=== PATIENT | male | born 1940 | race Caucasian/White ===

== ENCOUNTER 2022-10-16 07:58 | Day surgery (SDC) | payer MEDICARE ==
[2022-10-09 15:10] LABS: BASOPHILS # (AUTO) 0.1 X10'3 (0-0.2); BASOPHILS % (AUTO) 0.8 % (0-1); EOSINOPHILS # (AUTO) 0.8 X10'3 (0-0.9); EOSINOPHILS % (AUTO) 8.4 % (0-6); LYMPHOCYTES % (AUTO) 22.2 % (21-51); MEAN CORPUSCULAR HEMOGLOBIN 29.6 PG (27.0-31.0); MEAN CORPUSCULAR HGB CONC 33.5 g/dL (33.0-36.5); MEAN CORPUSCULAR VOLUME 88.4 FL (78-98); MEAN PLATELET VOLUME 8.4 FL (7.4-10.4); MONOCYTES # (AUTO) 0.7 X10'3 (0-0.9); MONOCYTES % (AUTO) 8.1 % (2-12); NEUTROPHILS # (AUTO) 5.5 X10'3 (1.8-7.7); NEUTROPHILS % (AUTO) 60.5 % (42-75); PRE OP HEMATOCRIT 43.9 % (42.0-52.0); PRE OP HEMOGLOBIN 14.7 g/dL (14.0-17.9); PRE OP PLATELET COUNT 187 X10'3 (140-440); RED BLOOD COUNT 4.97 X10'6 (4.70-6.10); RED CELL DISTRIBUTION WIDTH 14.8 % (11.5-14.5)
[2022-10-09 15:28] LABS: BILIRUBIN,URINE NEGATIVE (Neg); CLARITY,URINE CLOUDY (Clear); COLOR,URINE YELLOW (Yellow); GLUCOSE, URINE NEGATIVE (Neg); KETONES,URINE TRACE mg/dl (Neg); LEUKOCYTE ESTERASE ,URINE SMALL (Neg); NITRITES, URINE NEGATIVE (Neg); OCCULT BLOOD,URINE NEGATIVE (Neg); PH,URINE 5.5 (4.8-8.0); PROTEIN,URINE 30 mg/dl (Neg); UROBILINOGEN,URINE 0.2 E.U/dL (0.2-1.0)
[2022-10-09 15:30] LABS: ALBUMIN 4.1 G/DL (3.4-5.0); ALBUMIN/GLOBULIN RATIO 1.1 (1.1-1.5); ALKALINE PHOSPHATASE 54 IU/L (46-116); BLOOD UREA NITROGEN 17 MG/DL (7-18); BUN/CREATININE RATIO 12.9 (10.0-20.0); CALCIUM 9.8 MG/DL (8.5-10.1); CHLORIDE 103 MMOL/L (99-107); CREATININE 1.32 MG/DL (0.60-1.10); PRE OP ALT 52 U/L (30-65); PRE OP ANION GAP 10 (8-16); PRE OP AST 32 U/L (10-37); PRE OP BILIRUB, TOTAL 0.4 MG/DL (0.0-1.0); PRE OP GLUCOSE 192 MG/DL (70-104); PRE OP POTASSIUM 4.4 MMOL/L (3.4-5.1); PRE OP SODIUM 139 MMOL/L (135-145); TOTAL CARBON DIOXIDE 26.3 MMOL/L (24-32); TOTAL PROTEIN 7.7 G/DL (6.4-8.2); eGFR 52 ML/MIN
[2022-10-09 15:51] LABS: UA COLLECTION TYPE CLN CATCH MIDSTREAM
[2022-10-09 15:52] LABS: HYALINE CASTS 0-3 /LPF (NEGATIVE); MUCUS STRANDS FEW /LPF (Neg); SQUAMOUS EPITHELIAL CELL,UR FEW /LPF (FEW)
[2022-10-09 15:53] LABS: BACTERIA,URINE 2+ /HPF (Neg); TRANSITIONAL EPI CELLS,URINE MANY /HPF; WBC CLUMPS,URINE MANY /HPF (NEGATIVE); WBC,URINE TNTC /HPF (0-4)
[2022-10-16] VITALS (20 sets, daily range): BP systolic 125–152; BP diastolic 68–97; PULSE 82–103; RESP 12–24; TEMP 98.1; O2SAT 90–100
[~2022-10-16] VITALS: Ht 170.2 cm; Wt 63.5 kg
[~2022-10-16 07:58] MED LIST: BUPIVAcaine/PF 2.5 mg/ml (0.25%) 30ml vial ONE; FAMO40TA58 PO; METF-900 PO; OMEP20CA16 PO; SIMV10TA98 PO; SITA100T11 PO; cefazolin 2gm/D5W 100mL 100 ML IV ONE; famotidine 20mg tablet PO ONE; ringers solution, lacted 1,000 ML IV SCH
--- NOTE | 2022-10-16 12:15 | NUR ---
SURGERY DELAYED. PT AND NOTIFIED. PT HAS BEEN UP TO THE BATHROOM, NO COMPLAINTS, IV PATENT ON A PUMP. REPORT GIVEN WITH ALL QUESTIONS ANSWERED TO SMILEY SPRAGUE WHO ASSUMES PT CARE.
[2022-10-16] MEDS ORDERED: dexamethasone sod phosphate 4mg/ml inj. ONE (14:03)
[2022-10-16] MEDS ORDERED: rocuronium 10mg/ml inj IV ONE (14:03)
[2022-10-16] MEDS ORDERED: ondansetron/PF 4mg/2ml inj ONE (14:03)
[2022-10-16] MEDS ORDERED: LIDOcaine 2% (20mg/ml) 5ml vial ONE (14:03)
[2022-10-16] MEDS ORDERED: propofol inj 20 ML IV ONE (14:03)
[2022-10-16] MEDS ORDERED: glycopyrrolate 0.2mg/ml inj ONE (14:10)
[2022-10-16] MEDS ORDERED: desflurane 240ml liquid inh. IH ONE (14:10)
[2022-10-16] MEDS ORDERED: neostigmine methylsulfate 1 MG/ML 10ml vial ONE (14:10)
[2022-10-16] MEDS ORDERED: PHENYLephrine 10mg/ml 5ml injection IV ONE (14:10)
[2022-10-16] MEDS ORDERED: midazolam 1 mg/ML 2ml injection ONE (14:16)
[2022-10-16] MEDS ORDERED: fentaNYL/PF 50MCG/1 ML 2ML syringe ONE (14:16)
[2022-10-16] MEDS ORDERED: acetaminophen 1,000mg/100ml IV 100 ML IV ONE (14:26)
[2022-10-16] MEDS ORDERED: BUPIVAcaine/PF 2.5 mg/ml (0.25%) 30ml vial IJ ONE (14:40)
[2022-10-16] MEDS ORDERED: ePHEDrine 50MG/ML INJ. ONE (14:43)
[2022-10-16] MEDS ORDERED: labetalol 20mg/4ml (5mg/ml) syringe IV ONE (16:05)
--- NOTE | 2022-10-16 16:15 | NUR ---
PT ARRIVED TO RR VIA [facility] ACCOMPANIED BY -ANESTHESIA REPORT GIVEN, PT WAKING UP VSS, DENIES PAIN, LAP SITES X 3-CDI, PIV 20G TO RIGHT HAND-SEE FLOWSHEET.
[2022-10-16] MEDS ORDERED: morphine 4 MG/ML inj SYRINge IV ONE (16:28)
[2022-10-16] MEDS ORDERED: labetalol 20mg/4ml (5mg/ml) syringe IV PRN (16:30)
[2022-10-16] MEDS ORDERED: fentaNYL/PF 50MCG/1 ML 2ML syringe IV PRN ×2 (16:30)
[2022-10-16] MEDS ORDERED: ondansetron/PF 4mg/2ml inj IV PRN (16:30)
[2022-10-16] MEDS ORDERED: hydrALAZINE 20mg/ml inj. IV PRN (16:30)
[2022-10-16] MEDS ORDERED: ringers solution, lacted 1,000 ML IV SCH (16:30)
[2022-10-16] MEDS ORDERED: morphine 4 MG/ML inj SYRINge IV PRN (16:30)
[2022-10-16] MEDS ORDERED: morphine 2 MG/ML inj. syringe IV PRN (16:30)
--- NOTE | 2022-10-16 18:35 | NUR ---
PERFORMED BLADDER SCANNER AND 325 CC OF URINE NOTED.
--- NOTE | 2022-10-16 19:25 | NUR ---
ALL DISCHARGE CRITERIA HAS BEEN MET. VSS, PAIN AT A TOLERABLE LEVEL, VOIDING AND ABLE TO SAFELY AMBULATE AND TRANSFER SELF. IV TAKEN OUT WITHOUT ANY COMPLICATIONS. ALL DISCHARGE INSTRUCTIONS COVERED WITH PATIENT AND ALL QUESTIONS ANSWERED. PATIENT TAKEN OUT VIA WHEELCHAIR WITH ALL BELONGINGS TO PERSONAL VEHICLE WHERE FAMILY DROVE PATIENT HOME. Addendum: 10/16/22 at 1944 by Laci Gonzalez RN Amended: Links added.
== END 2022-10-16 19:25 | disposition home or self-care (01) ==
LOC: PAS 07:58
PROVIDERS: ATTEND Surgery
DX: K40.90 Unilateral inguinal hernia, without obstruction or gangrene, not specified as recurrent (principal); D17.6 Benign lipomatous neoplasm of spermatic cord; E11.22 Type 2 diabetes mellitus with diabetic chronic kidney disease; N18.30 Chronic kidney disease, stage 3 unspecified; K21.9 Gastro-esophageal reflux disease without esophagitis; Z98.890 Other specified postprocedural states; Z79.84 Long term (current) use of oral hypoglycemic drugs; Z79.899 Other long term (current) drug therapy; Z87.891 Personal history of nicotine dependence; Z83.3 Family history of diabetes mellitus
CPT/HCPCS: 36415; 49650; 80053; 81001; 82948; 85025; 87088; C1781; J0131; J0690; J1100; J2250; J2270; J2370; J2405; J2704; J2710; J3010; J3490; J7030; J7120; Z7506; Z7508; Z7512; A4215; A4618; C1758

== ENCOUNTER 2025-02-14 13:15 | Outpatient (CLI) | payer MEDICARE ==
[~2025-02-14 13:15] MED LIST changes: -BUPIVAcaine/PF 2.5 mg/ml (0.25%) 30ml vial ONE; -cefazolin 2gm/D5W 100mL 100 ML IV ONE; -famotidine 20mg tablet PO ONE; -ringers solution, lacted 1,000 ML IV SCH
--- NOTE | 2025-02-14 15:24 | RADIOLOGY REPORT ---
EXAM: MR MRI C SPINE HISTORY: SPONDYLOSIS W/O MYELOPATHY OR RADICULOPATHY, LUMBA COMPARISON: None TECHNIQUE: MRI was performed utilizing multiple appropriate imaging planes and pulse sequences. FINDINGS: There is no acute displaced fracture. There are degenerative changes of the cervical spine characterized by multilevel disc desiccation, endplate osteophytosis, and intervertebral disc space narrowing, most pronounced spanning C5 through C7. There is grade 1 anterolisthesis of C3 on C4. There is mild edema across the opposing endplates of C7-T1. The spinal cord is unremarkable. The paraspinal soft tissues are unremarkable. INTERVERTEBRAL DISCS: C2-C3: No disc herniation, central canal stenosis, or neuroforaminal stenosis. C3-C4: There is grade 1 anterolisthesis of C3 on C4 associated with unroofing of the disc. There is effacement of the thecal sac. There is no significant spinal canal or neural foraminal stenosis. C4-C5: A mild disc osteophyte complex effaces the thecal sac without significant spinal canal or neural foraminal stenosis C5-C6: A broad-based disc osteophyte complex effaces the thecal sac and contributes to at least moderate spinal canal stenosis and moderate bilateral neural foraminal stenosis. C6-C7: Broad-based disc osteophyte complex effaces the thecal sac and contributes to at least [id number] spinal stenosis and mild bilateral neural foraminal stenosis. C7-T1: Broad-based disc osteophyte complex effaces the thecal sac and contributes to at least borderline spinal stenosis. The neural foramen are patent. IMPRESSION: 1. Degenerative changes of the cervical spine as detailed, most pronounced at C5-6 and C6-7. 2. Mild edema across the opposing endplates of C6-7 may be degenerative in etiology, though clinical correlation is suggested to exclude infectious/inflammatory process.
--- NOTE | 2025-02-14 15:41 | RADIOLOGY REPORT ---
EXAM: MR MRI LUMBAR SPINE CLINICAL HISTORY: SPONDYLOSIS W/O MYELOPATHY OR RADICULOPATHY, LUMBAR REGION COMPARISON: None TECHNIQUE: MRI imaging of the lumbar was performed on a MRI imaging system without intravenous contrast. FINDINGS: For the purposes of this examination, the last well-formed intervertebral disc space will be designated as L5-S1. By this convention, the conus medullaris terminates at the L1 level. The vertebral body heights are well-maintained. There is mild edema across the opposing endplates of L2-3 and L4-5, likely degenerative in etiology. There are degenerative changes of the lumbar spine characterized by endplate osteophytosis and intervertebral disc space narrowing. There is multilevel disc desiccation. There is retrolisthesis of L3 on L4 and L4 on L5. The paraspinal soft tissues are unremarkable. There is severe left hydronephrosis, incompletely assessed. Right renal cysts are also incompletely assessed. At the T12-L1 level, there is no evidence of central spinal canal or neuroforaminal stenosis. At the L1-L2 level, there is a mild posterior disc protrusion without significant spinal canal or neural foraminal stenosis. At the L2-L3 level, a broad-based disc protrusion effaces the thecal sac and narrows the left lateral recess. There is [id number] spinal stenosis. There is prominent facet arthropathy and ligamentum flavum hypertrophy. The neural foramina are patent. At the L3-L4 level, a broad-based disc protrusion effaces the thecal sac and narrows the lateral recesses. There is facet arthropathy and ligamentum flavum hypertrophy. There is borderline spinal canal stenosis and severe left neural foraminal stenosis. At the L4-L5 level, a broad-based disc protrusion effaces the thecal sac. There is prominent facet arthropathy and ligamentum flavum hypertrophy with distortion of the thecal sac. There is severe spinal stenosis. There is moderate right neural foraminal stenosis. At the L5-S1 level, there is facet arthropathy with at least mild bilateral neural foraminal stenosis. IMPRESSION: 1. 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 Please see above discussion.
== END 2025-02-14 23:59 | disposition home or self-care (01) ==
LOC: MRI02 13:15
PROVIDERS: ATTEND Physical Medicine & Rehabilitation
DX: M51.26 Other intervertebral disc displacement, lumbar region (principal); M47.817 Spondylosis without myelopathy or radiculopathy, lumbosacral region; M48.07 Spinal stenosis, lumbosacral region; M48.02 Spinal stenosis, cervical region
CPT/HCPCS: 72141; 72148